=== PATIENT | female | born 1930 | race African-American/Black ===

== ENCOUNTER 2016-06-12 09:39 | Inpatient (IN) | payer MEDICARE ==
[~2016-06-12] VITALS: Ht 167.6 cm; Wt 63.5 kg
[~2016-06-12 09:39] MED LIST: ASPIRIN325 MG PO; BAYER CHEWABLE81 MG PO; C-500500 MG PO; CALCIUM 600 +1 EAC3; CALCIUM 600 +1 EAC3 PO; COREG12.5 MG PO; ELIQUIS2.5 MG PO; GLIMEPIRIDE4 MG PO; GLUCERNA 1 CAL237 ML PO; HYDROCODONE-APA1 TAB PO; LASIX40 MG PO; LEVAQUIN250 MG PO; LEVEMIR100 U/M1 SC; MIRALAX17 GM PO; NORCO 7.5/325 T1 TA1 PO; PATADAY2.5 ML EACH EYE; SILVADENE CREAM50 GM TOPICAL; STRESS 600 WI1 UDTAB PO; TUMS500 MG; TUMS500 MG PO; TYLENOL W/CODEI1 TAB; TYLENOL W/CODEI1 TAB PO; VANCOMYCIN 1 GM/1 G1 IV; ZOCOR40 MG PO; ZOSYN 2.25 GM2.25 G1 IV
[2016-06-12 10:15] VITALS: BP 111/56
--- NOTE | 2016-06-12 10:26 | NUR ---
FOUND PT IN ROOM IN WHEELCHAIR WITH NO ONE ELSE IN ROOM WITH HER. PT IS A BILAT AMPUTEE. SAYS SHE IS FROM THE [facility] AND THAT THEY DROPPED HER OFF. PT USUALLY NEEDS A VIKY LIFT TO LIFT HER TO AND FROM WHEELCHAIR TO BED. IT TOOK FOUR STAFF MEMBERS TO BUS DRIVER/MONITOR PT TO THE BED. PT IS OF NO ASSISTANCE TO STAFF. PT HAS MULTIPLE OPEN SORES ON HER BUTTOCK AND THIGH AREA. LOOK LIKE SCRAPES, PINK IN COLOR. PT HAS A R CHEST HEMOSPLIT. WITH NO DRESSING ON. STERILE TECHNIQUE INITIATED AND PLACED DRESSING ON. PT SITTING UP IN BED EATING WILL CONT TO MONITOR.
[2016-06-12] MEDS ORDERED: COREG12.5 MG PO (10:55)
[2016-06-12] MEDS ORDERED: CULTURELLE1 CAP PO (11:08)
[2016-06-12] MEDS ORDERED: LEVEMIR100 U/M1 SC (11:08)
[2016-06-12 12:40] LABS: BASOPHILS 0.3 % (0.0-2.0); EOSINOPHILS 1.3 % (0-7); HEMATOCRIT 38.8 % (36.0-48.0); HEMOGLOBIN 12.4 g/dL (12-16); IMMATURE GRANULOCYTES 0.1 % (0-5); LYMPHOCYTES 41.5 % (15-50); MCH 31.6 pg (26.0-34.0); MEAN PLATELET VOLUME 10.7 fL (7.4-10.4); MONOCYTES 7.8 % (2-11); PLATELET COUNT 209 10x3/uL (130-400); RBC 3.92 10x6/uL (4.00-5.40); RDW 15.3 % (11.5-14.5); WBC 6.7 10x3/uL (4.8-10.8)
[2016-06-12 12:46] LABS: ALBUMIN 3.7 g/dL (3.4-5.0); ANION GAP 17.7 mmol/L (8-16); BILIRUBIN - TOTAL 0.22 mg/dL (0.2-1.3); CALCIUM 9.7 mg/dL (8.5-10.1); CARBON DIOXIDE 24.7 mmol/L (21.0-32.0); CREATININE - SERUM 3.8 mg/dL (0.6-1.3); POTASSIUM - SERUM 4.4 mmol/L (3.5-5.1); PROTEIN - SERUM 8.2 g/dL (6.4-8.2)
--- NOTE | 2016-06-12 12:48 | NUR ---
DR VAZQUEZ CAME UP TO SEE PT. MAKENZIE VASCULAR NURSE WAS UNABLE TO GET IV ON PT SHE STUCK PT X5 TIMES. DR VAZQUEZ SAID THAT WE DO NOT NEED A PIV, AND THAT WE COULD RUN HER IV ABX ON DIALYSIS. SHE WILL BE ON DAILY DIALYSIS. HE PLANS ON REMOVING HER R CHEST HEMOSPLIT IN 2 DAYS AND PLACING ANOTHER ON IN HER LEFT CHEST AFTER THAT. PT WAS ADMITTED WITH NO DRESSING ON HEMOSPLIT SITE! I IMMEDIATELY CLEANSED AND PLACED DRESSING ON ARRIVAL. WAITING ON LAB TO BRING CULTURE TUBES TO DRAW BC.
--- NOTE | 2016-06-12 14:39 | NUR ---
HAVE CALLED DIALYSIS TWICE NOW TO FIND OUT WHEN THEY ARE DIALYZING PT TODAY. VANC ORDERED TO BE GIVEN ON DIALYSIS.
[2016-06-12 16:27] VITALS: BP 124/52
--- NOTE | 2016-06-12 16:28 | NUR ---
PT SITTING UP IN BED WAITING ON DINNER. HER FSBS WAS 153, SHE REFUSED INSULIN. SHE DOES NOT TAKE SLIDING SCALE INSULIN AT HOME. SHE IS AFRAID OF BOTTOMING OUT. NOT GIVEN PER HER REQUEST.
--- NOTE | 2016-06-12 16:38 | NUR ---
ELSY FROM DIALYSIS HERE TO DIALYZE PT. GIVEN HER VANC TO GIVE PT ON DIALYSIS.
--- NOTE | 2016-06-12 17:30 | NUR ---
CALLED PT LONGTERM WHERE SHE RESIDES. THEY ARE FAXING POA IN THE AM WHEN THE OFFICES ARE OPEN.
--- NOTE | 2016-06-12 20:16 | NUR ---
PT CURRENTLY RECIEVING HEMODIALYSIS. ALERT/ORIENTED. NO NEEDS VOICED. CPOC. DIALYSIS NURSE AT BEDSIDE.
[2016-06-13] VITALS: BP 103/54
[2016-06-13 04:00] VITALS: BP 108/51
--- NOTE | 2016-06-13 07:28 | NUR ---
PT SITTING UP IN BED SLEEPING NO S/S DISTRESS WILL CONT TO MONITOR.
[2016-06-13 09:40] VITALS: Ht 167.6 cm; Wt 63.5 kg
[2016-06-13 10:00] VITALS: BP 114/42
[2016-06-13 11:41] VITALS: BP 123/68
[2016-06-13 12:34] LABS: BASOPHILS 0.5 % (0.0-2.0); EOSINOPHILS 1.5 % (0-7); HEMATOCRIT 39.5 % (36.0-48.0); HEMOGLOBIN 12.7 g/dL (12-16); LYMPHOCYTES 41.2 % (15-50); MCH 31.8 pg (26.0-34.0); MCHC 32.2 g/dL (31.0-37.0); MEAN PLATELET VOLUME 10.6 fL (7.4-10.4); MONOCYTES 9.4 % (2-11); NEUTROPHILS 47.4 % (40-80); PLATELET COUNT 187 10x3/uL (130-400); RBC 3.99 10x6/uL (4.00-5.40); RDW 15.1 % (11.5-14.5); WBC 5.9 10x3/uL (4.8-10.8)
[2016-06-13 13:54] LABS: ALBUMIN 3.7 g/dL (3.4-5.0); BILIRUBIN - TOTAL 0.7 mg/dL (0.2-1.3); CALCIUM 9.5 mg/dL (8.5-10.1); CARBON DIOXIDE 29.2 mmol/L (21.0-32.0); MAGNESIUM - SERUM 1.8 mg/dL (1.8-2.4); PROTEIN - SERUM 8.6 g/dL (6.4-8.2)
[2016-06-13 14:05] LABS: CREATININE - SERUM 1.5 mg/dL (0.6-1.3)
[2016-06-13 14:06] LABS: ANION GAP 13.7 mmol/L (8-16); POTASSIUM - SERUM 2.9 mmol/L (3.5-5.1)
--- NOTE | 2016-06-13 14:10 | NUR ---
PT K CRITICAL LOW 2.9. PAGED PHAN
--- NOTE | 2016-06-13 14:16 | NUR ---
CALLED PHAN FOR PT CRITICAL LOW POTASSIUM. SHE SAID TO REDRAW POTASSIUM AT [place] 4 PM SINCE THE INSULATION WORKER APPRENTICE SUSANNA WHILE PT WAS RECEIVING DIALYSIS. AND THEN SEE IF IT COMES UP. ALSO TO PUT PT ON TELE. PLACING ON TELE NOW. ORDERED REDRAW.
--- NOTE | 2016-06-13 14:34 | NUR ---
Patient Name: THERESE ADORNO Admission Status: Elective Accout number: [id number] Admission Date: 06-12-2016 : 1930 Admission Diagnosis: Attending: PANCHO Current LOS: 1 Anticipated DC Date: Planned Disposition: Nursing Facility [facility] Cert Primary Insurance: MEDICARE A & B PLANNED EXTERNAL PROVIDER: [facility], [facility] CARE MEDICAID BED Discharge Planning Comments: * Is the patient Alert and Oriented? Yes 0 * How many steps to enter\exit or inside your home? NONE 0 * PCP DR. TRAVIS 0 * Pharmacy [facility] 0 * Preadmission Environment [facility] 0 * Facility Name [facility] 0 * ADLs Partial Dependent 0 * Partial ADLs (Assistance needed) Bathing Medication Management Toileting Transfers 0 * Equipment Other 0 * Other Equipment ALL MEDICAL EQUIPMENT PROVIDED BY SNF 0 * List name and contact numbers for known caregivers / representatives who currently or will assist patient after discharge: NICKO CABRERA, NEPHPATRICK, 0 * Community resources currently utilized Other 0 * Please name any agencies selected above. OUTPATIENT DIALYSIS: [facility] ; M/W/F, 1145AM\ SNF VAN OR [facility] MEDICAID TRANSPORT 0 * Additional services required to return to the preadmission environment? No 0 * Can the patient safely return to the preadmission environment? Yes 0 * Has this patient been hospitalized within the prior 30 days at any hospital? No 0 CM MET WITH PT IN ROOM TO DISCUSS DISCHARGE PLANNING AND NEEDS. PT REPORTS LIVING AT HOME DEPENDENT UPON STAFF AT [facility]. PT WILL BE RETURNING THERE AT DISCHARGE, SNF WILL SEND VAN TO PICK HER UP. PT GOES TO [facility] IN [place] [address] FROM THE SNF AND IS TRANSPORTED BY THE SNF VAN AND SOMETIMES BY [employer] WHEN THE VAN IS NOT AVAILABLE. PT REPORTS ALL OF HER NEEDS ARE MET BY THE SNF. PT REPORTS THAT HER NEPHEW KNOWS SHE IS HERE AND CALLED HER LAST NIGHT TO CHECK ON HER. PT DENIES NEEDS AT THIS TIME. FOR DISCHARGE, [facility], , FAX DISCHARGE INFORMATION TO [phone]. SNF TO ARRANGE VAN TRANSPORTATION. CM TO FOLLOW AND ASSIST NEEDED. Marine Pipefitter: Kane Goodson
[2016-06-13 15:43] VITALS: BP 109/53
--- NOTE | 2016-06-13 15:53 | NUR ---
PT STILL RUNNING SR 80 BPM
--- NOTE | 2016-06-13 20:00 | NUR ---
PT RESTING IN BED. ROUSES UP EASILY. RESERVE LEFT ARM. RIGHT CHEST WALL HEMOSPLIT. ON ISOLATION FOR MRSE OF THE BLOOD. FSBS AC & HS. SEE ASSESSMENT. CPOC.
[2016-06-13 21:01] VITALS: BP 136/59
--- NOTE | 2016-06-13 21:36 | NUR ---
HS MEDS GIVEN. PT RESTING , WATCHING TV. NORCO FOR OPTIMAL LEVEL OF COMFORT. CPOC.
[2016-06-14 01:09] VITALS: BP 108/51
--- NOTE | 2016-06-14 04:08 | NUR ---
RESTING IN BED WITH NO DISTRESS. CPOC. CALL LIGHT IN REACH.
[2016-06-14 05:23] VITALS: BP 118/56
[2016-06-14 06:25] LABS: PHOSPHOROUS 3.7 mg/dL (2.5-4.9)
--- NOTE | 2016-06-14 07:30 | NUR ---
ASSESSMENT DONE. PT SLEEPING. EASILY AWAKEN. DENIES NEEDS AT THIS TIME. NO DISTRESS NOTED. CALL LIGHT WITH IN REACH. WILL CONT. TO MONITOR.
[2016-06-14 08:09] VITALS: BP 118/57
--- NOTE | 2016-06-14 08:53 | NUR ---
NURSE ENTERED ROOM TO GIVE MEDS. DIALYSIS NURSE IN ROOM HOOKING PT UP TO DIALYSIS. WILL WAIT TO GIVE MEDS UNTIL DIALYSIS IS FINISHED. PT DENIES PAIN OR DISCOMFORT. NO DISTRESS NOTED. CALL LIGHT WITH IN REACH. WILL CONT. TO MONITOR.
[2016-06-14 11:36] VITALS: BP 132/69
--- NOTE | 2016-06-14 13:09 | NUR ---
RESTS IN ISOLATION ROOM. TANI NEEDS AT THIS TIME. CALL LIGHT IN REACH. WILL CONT. PLAN OF CARE.
--- NOTE | 2016-06-14 13:33 | NUR ---
EKG DONE AND CONSENTS SIGNED FOR HEMOSPLIT REMOVAL. TO BE DONE TODAY BY DR. MALIK. PT A/O X4 AND ABLE TO UNDERSTAND AND VERBALIZED PROCEDURE AND RISKS. PT'S NEPHEW SCOTT RAI ALSO NOTIFIED OF PROCEDURE TO BE DONE TODAY AT AROUND 2PM. HE STATES HE WILL TRY TO BE HERE FOR PROCEDURE. ANETHESIA HERE TALKING WITH PT NOW.
--- NOTE | 2016-06-14 14:11 | NUR ---
PT TO OR VIA BED
--- NOTE | 2016-06-14 14:50 | NUR ---
PT BACK FROM O2. A/O X3. HEMOSPLIT REMOVED FROM RIGHT CHEST. DRESSING IN PLACE WITH SMALL AMOUNT OF BLOOD NOTED. SMALL HEMATOMA NOTED. PT DENIES PAIN AT SITE. HOB ELEVATED WILL CONT. TO MONITOR. LOCAL ANETHESIA USED ONLY. B/P 138/77 P-75. TRAY ORDERED. WILL CALL PT'S NEPHEW AND NOTIFY HIM THAT PROCEDURE IS OVER. CALL LIGHT WITH IN REACH. PT PASSING GAS, BUT DENIES BM. ALSO, PT REFUSES TO ALLOW NURSE TO RE-APPLY TELEMETRY. STATES IT IS UNCOMFORTABLE AND SHE DOES NOT WANT TO WEAR IT. PT HAS BEEN SR THE WHOLE TIME SHE HAS WORN IT. EXPLAINED TO PT THAT THE DR'S WOULD LIKE TO CONT. TO MONIOR HER HEART. PT STILL REFUSES TO WEAR TELEMETRY. WILL CONT. TO MONITOR.
[2016-06-14 15:37] VITALS: BP 121/64
--- NOTE | 2016-06-14 16:07 | NUR ---
PT SITTING UP IN BED EATING AND VISITING WITH FAMILY. DRESSING TO SITE STILL WITH SMALL AMOUT OF BLOOD NOTED. HEMATOMA AROUND SITE STABLE. HOB ELEVATE. PT DENIES PAIN AT SITE. WILL CONT. TO MONITOR. NO DISTRESS NOTED. RESP EVEN AND UNLABORED. CALL LIGHT WITH IN REACH. WILL CONT. TO MONITOR.
--- NOTE | 2016-06-14 16:16 | NUR ---
ZOË HERNANDEZQA SOFTWARE TESTER NOTIFIED TO SCHEDULE PT'S SURGERY FOR THURSDAY FOR INSERTION OF HEMOSPLIT CATH. PT REPORTS THAT IT IS ALREADY DONE. WILL PASS ON IN REPORT THAT CONSENTS NEED TO BE SIGNED TOMORROW.
[2016-06-14 20:04] VITALS: BP 120/53
--- NOTE | 2016-06-14 21:25 | NUR ---
PT ASSESSMENT COMPLETED CALL LIGHT IN REACH NO DISTRESS OBSERVED GLUCOSE CHECKED AND READING 315 PT REFUSED HUMALIN BUT ALLOWED LEVAMIER INJ FOR COVERAGE RESPERATIONS EVEN AND UNLABORED ON ROOM AIR PT HAS NO IV WILL MONITOR
[2016-06-15 00:30] VITALS: BP 110/60
--- NOTE | 2016-06-15 01:57 | NUR ---
PT LAYING IN BED NO DISTRESS OBSERVED BED LOW AND LOCKED WILL MONITOR
--- NOTE | 2016-06-15 01:58 | NUR ---
PT LAYING IN BED NO DISTRESS OBSERVED WILL MONITOR
[2016-06-15 04:30] VITALS: BP 133/57
--- NOTE | 2016-06-15 07:05 | NUR ---
RECEIVED REPORT. ASSUMED CARE OF PATIENT. ALERT/ORIENTED. RESP EVEN AND UNLABORED. PATIENT DENIES NEEDS AT THIS TIME. REMAINS IN CONTACT ISOLATION. CALL LIGHT WITHIN REACH. NO DISTRESS.
[2016-06-15 07:34] VITALS: BP 122/59
[2016-06-15 07:55] LABS: BASOPHILS 0.4 % (0.0-2.0); EOSINOPHILS 1.8 % (0-7); HEMATOCRIT 36.6 % (36.0-48.0); HEMOGLOBIN 11.6 g/dL (12-16); IMMATURE GRANULOCYTES 0.2 % (0-5); LYMPHOCYTES 39.8 % (15-50); MCH 31.9 pg (26.0-34.0); MCHC 31.7 g/dL (31.0-37.0); MCV 100.5 fL (80.0-100.0); MEAN PLATELET VOLUME 10.4 fL (7.4-10.4); NEUTROPHILS 46.8 % (40-80); PLATELET COUNT 161 10x3/uL (130-400); RBC 3.64 10x6/uL (4.00-5.40); RDW 15.2 % (11.5-14.5); WBC 5.6 10x3/uL (4.8-10.8)
[2016-06-15 08:10] LABS: ANION GAP 14.9 mmol/L (8-16); CALCIUM 9.7 mg/dL (8.5-10.1); CARBON DIOXIDE 27.1 mmol/L (21.0-32.0)
[2016-06-15 08:11] LABS: CREATININE - SERUM 3.5 mg/dL (0.6-1.3)
--- NOTE | 2016-06-15 11:19 | NUR ---
FSBS 326. 8 UNITS HUMULIN ADMINISTERED PER SLIDING SCALE. NO DISTRESS.
[2016-06-15 11:36] VITALS: BP 121/57
--- NOTE | 2016-06-15 12:11 | NUR ---
LAB CALLED DUE TO FSBS IS NOT TRANSFERRING FSBS TO PATIENT RECORD. LAB STATES THAT PERSON WHOM CAN FIX THIS PROBLEM ALREADY GONE FOR THE DAY. FSBS MACHINE DOCKED TO DIFFERENT STATION AT THIS TIME IN HOPES THAT RESULTS WILL TRANSFER TO PATIENT RECORD.
[2016-06-15 15:32] VITALS: BP 118/62
--- NOTE | 2016-06-15 16:40 | NUR ---
FSBS 187. 2 UNITS HUMULIN ADMINISTERED PER SLIDING SCALE. NO DISTRESS.
--- NOTE | 2016-06-15 17:58 | NUR ---
TURNED AND REPOSITIONED. INCONTINENT CARE PROVIDED. CALL LIGHT WITHIN REACH. NO DISTRESS.
--- NOTE | 2016-06-15 18:42 | NUR ---
SITTING UP IN BED. NO DISTRESS. DENIES NEEDS. CALL LIGHT WITHIN REACH.
--- NOTE | 2016-06-15 19:32 | NUR ---
ASSESSMENT COMPLETE. SITTING UP IN BED, A&O. RESPERATIONS EVEN AND UNLABORED. PT DENIES PAIN OR NEEDS, BED LOW, CL IN REACH, WILL CONT TO MONITOR.
[2016-06-15 20:36] VITALS: BP 123/60
--- NOTE | 2016-06-15 21:08 | NUR ---
HS MEDS GIVEN WITH FRESH ICE WATER. NORCO 1 TAB GIVEN FOR C/O PAIN. BS 191, COVERED PER S/S. WILL CONT TO MONITOR.
--- NOTE | 2016-06-16 00:30 | NUR ---
SUPERVISOR ELECTRIC AT BEDSIDE FOR VS. NEEDS ADDRESSED AT THIS TIME. CALL LIGHT IN REACH. WILL CONT TO MONITOR.
[2016-06-16 01:24] VITALS: BP 116/52
--- NOTE | 2016-06-16 02:39 | NUR ---
RESTING WITH EYES CLOSED, RESPERATIONS EVEN, NO S/S DISTRESS NOTED.
[2016-06-16 04:40] LABS: BASOPHILS 0.3 % (0.0-2.0); HEMATOCRIT 34.5 % (36.0-48.0); HEMOGLOBIN 11.3 g/dL (12-16); IMMATURE GRANULOCYTES 0.2 % (0-5); LYMPHOCYTES 49.8 % (15-50); MCH 32.8 pg (26.0-34.0); MCHC 32.8 g/dL (31.0-37.0); MEAN PLATELET VOLUME 10.5 fL (7.4-10.4); MONOCYTES 8.4 % (2-11); NEUTROPHILS 38.3 % (40-80); PLATELET COUNT 174 10x3/uL (130-400); RBC 3.45 10x6/uL (4.00-5.40); RDW 14.9 % (11.5-14.5); WBC 6.7 10x3/uL (4.8-10.8)
[2016-06-16 04:59] LABS: ANION GAP 13.8 mmol/L (8-16); CALCIUM 9.9 mg/dL (8.5-10.1); CARBON DIOXIDE 28.2 mmol/L (21.0-32.0); PHOSPHOROUS 3.8 mg/dL (2.5-4.9)
[2016-06-16 05:02] LABS: CREATININE - SERUM 4.6 mg/dL (0.6-1.3)
[2016-06-16 06:26] VITALS: BP 145/70
--- NOTE | 2016-06-16 07:33 | NUR ---
ASSESSMENT COMPLETED. NO TELEMENTRY. 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 BILATERAL BKA. IN CONTACT ISOLATION. SR UP WITH CALL IN REACH. WILL MONITOR
[2016-06-16 07:43] VITALS: BP 123/60
--- NOTE | 2016-06-16 08:29 | NUR ---
RESTING QUIETLY NAD NOTED
[2016-06-16 12:07] VITALS: BP 143/73
--- NOTE | 2016-06-16 13:57 | NUR ---
WOUND CARE CONSULT: PT HAS A HISTORY OF PRESSURE INJURIES. HER BUTTOCKS/SACRUM/COCCYX/GLUTEAL FOLDS ARE PINK FROM OLD INJURIES. SHE IS A BILATERAL AMPUTEE. JUST BELOW BILATERAL GLUTEAL FOLDS ARE 2 AREAS OF RAW SKIN. BOTH MEASURING 1CM X 3CM. LOOK LIKE SKIN TEARS. HER PERINEAL AREA IS RED AND EXCORIATED. RECOMMEND COVERING SACRUM WITH MEPILEX TO PROTECT AND RAW SKIN WITH MEPILEX TO PROTECT. WILL ALSO RECOMMEND AIR OVERLAY MATTRESS.
--- NOTE | 2016-06-16 14:31 | NUR ---
HOB UP.WATCHING TV. DENIES ANY NEEDS. WILL MONITOR.
[2016-06-16 16:15] VITALS: BP 122/57
--- NOTE | 2016-06-16 17:14 | NUR ---
IST STEP BED ON. DENIES ANY NEEDS. CALL LIGHT IN REACH WITH SR UP. WILL MONITOR
--- NOTE | 2016-06-16 19:25 | NUR ---
RECEIVED REPORT, HAS LAVF-NON WORKING, BILATERAL BKA, R. HAND-MISSING LITTLE FINGER, PT ON 1ST MATTRESS, BED IS LOW,SRX2, BED ALARM IS ON, NPO AFTER MIDNIGHT- HEMOSPLIT IN AM, CONSENT SIGNED PER DAYSHIFT, [id number], DENIES ANY NEEDS, CALL LIGHT IN REACH, WILL CONTINUE TO MONITOR
[2016-06-16 20:00] VITALS: BP 126/61
--- NOTE | 2016-06-16 21:15 | NUR ---
BLOOD SUGAR-179, HELD INSULIN, BECAUSE WILL BE NPO AFTER MIDNIGHT
[2016-06-17] VITALS: BP 146/97
--- NOTE | 2016-06-17 00:30 | NUR ---
BINDING CEMENTER FRENCH CORD AT BEDSIDE FOR VS. NEEDS ADDRESSED. CALL LIGHT IN REACH. WILL CONT TO MONITOR.
[2016-06-17 04:00] VITALS: BP 136/63
[2016-06-17 05:31] LABS: BASOPHILS 0.2 % (0.0-2.0); EOSINOPHILS 3.3 % (0-7); HEMATOCRIT 33.2 % (36.0-48.0); HEMOGLOBIN 10.5 g/dL (12-16); IMMATURE GRANULOCYTES 0.2 % (0-5); LYMPHOCYTES 38.1 % (15-50); MCH 31.3 pg (26.0-34.0); MCHC 31.6 g/dL (31.0-37.0); MCV 98.8 fL (80.0-100.0); MEAN PLATELET VOLUME 10.5 fL (7.4-10.4); MONOCYTES 8.2 % (2-11); PLATELET COUNT 171 10x3/uL (130-400); RBC 3.36 10x6/uL (4.00-5.40); RDW 14.7 % (11.5-14.5)
[2016-06-17 06:15] LABS: ANION GAP 17.9 mmol/L (8-16); CALCIUM 9.6 mg/dL (8.5-10.1); CARBON DIOXIDE 25.3 mmol/L (21.0-32.0); POTASSIUM - SERUM 4.2 mmol/L (3.5-5.1); VANCOMYCIN - RANDOM 19.8 ug/mL (10.0-20.0)
[2016-06-17 06:16] LABS: CREATININE - SERUM 5.8 mg/dL (0.6-1.3)
--- NOTE | 2016-06-17 07:00 | NUR ---
RECEIVED REPORT. ASSUMED CARE OF PATIENT. CALL LIGHT WITHIN REACH. RESTING WITH EYES CLOSED. RESP EVEN AND UNLABORED. FIRST STEP BED PATENT. PATIENT NPO FOR HEMOSPLIT PLACEMENT TODAY. NO DISTRESS.
[2016-06-17 08:01] VITALS: BP 141/74
--- NOTE | 2016-06-17 09:08 | NUR ---
MEPILEX REPLACED TO SACRUM/COCCYX AT THIS TIME. NO DISTRESS. CALL LIGHT WITHIN REACH. MEPILEX PATENT TO BILATERAL POSTERIOR UPPER THIGH CREASES NEAR BUTTOCK. NO DIAPER, PAPER CHUCKS UTILIZED.
--- NOTE | 2016-06-17 10:36 | NUR ---
VASCULAR ACCESS NURSE AT BEDSIDE FOR ATTEMPT TO PLACE IV PRIOR TO SURGERY SCHEDULED FOR TODAY.
--- NOTE | 2016-06-17 10:50 | NUR ---
22 GAUGE IV PLACED TO RIGHT WRIST X 2 STICKS BY VASCULAR ACCESS NURSE MAKENZIE. EASY FLUSH, GOOD BLOOD RETURN. TAPED, DATED AND SECURED. TOLERATED IV PLACEMENT WELL.
--- NOTE | 2016-06-17 11:41 | NUR ---
FSBS 148. NO INSULIN COVERAGE PER SLIDING SCALE AND PATIENT IS NPO FOR SURGICAL PROCEDURE TODAY.
[2016-06-17 12:15] VITALS: BP 126/53
--- NOTE | 2016-06-17 12:25 | NUR ---
BRYAN MILNER FROM DIALYSIS CALLED TO CHECK ON PATIENT TO SEE IF SHE WOULD BE THERE FOR DIALYSIS TOMORROW. INFORMED BRYAN MILNER THAT THIS BIOFUELS PLANT OPERATIONS ENGINEER IS UNSURE OF DISCHARGE ARRANGMENTS AT THIS TIME. [phone] IS THE NUMBER THAT BRYAN MILNER CAN BE REACHED AT. BRYAN MILNER STATED SHE WOULD CALL TOMORROW AM AND CHECK ON PATEINT.
--- NOTE | 2016-06-17 13:45 | NUR ---
Patient Name: LARA DICKSON Admission Status: Urgent Accout number: [id number] Admission Date: 06-16-2016 : 10-04-1947 Admission Diagnosis: Attending: TAZ Current LOS: 1 Anticipated DC Date: Planned Disposition: Home Primary Insurance: MEDICARE A & B Discharge Planning Comments: * Is the patient Alert and Oriented? Yes 0 * How many steps to enter\exit or inside your home? RAMP 0 * PCP DR. LÓPEZ 0 * Pharmacy [facility] [address] 0 * Preadmission Environment Home with Family 0 * ADLs Independent 0 * Equipment Cane Other- ELECTRIC SCOOTER Walker 0 * Other Equipment NO MEDICAL EQUIPMENT PROVIDER PREFERENCE 0 * List name and contact numbers for known caregivers / representatives who currently or will assist patient after discharge: ROMAIN DICKSON, SPOUSE, 0 * Community resources currently utilized None 0 * Please name any agencies selected above. NONE 0 * Additional services required to return to the preadmission environment? No 0 * Can the patient safely return to the preadmission environment? Yes 0 * Has this patient been hospitalized within the prior 30 days at any hospital? No 0 CM MET WITH PT IN ROOM TO DISCUSS DISCHARGE PLANNING AND NEEDS. PT REPORTS LIVING AT HOME INDEPENDENTLY WITH SPOUSE. PT HAS A CANE, WALKER SHE BOUGHT AT A YARD SALE ABOUT 8 YEARS AGO AND AN OLD ELECTRIC SCOOTER. PT HAS NO MEDICAL EQUIPMENT PROVIDER PREFERENCE. PT HAS NO OUTSIDE SERVICES ASSISTING IN THE HOME. CM DISCUSSED AVAILABILITY OF HOME HEALTH, REHAB SERVICES AND MEDICAL EQUIPMENT. PT DENIES DISCHARGE NEEDS, REPORTS HER SPOUSE WILL PICK HER UP FOR DISCHARGE HOME. PT PLANS TO DISCHARGE HOME WITH SPOUSE, NO ANTICIPATED NEEDS. CM TO FOLLOW AND ASSIST NEEDED. Technology Advisor: Kane Goodson
--- NOTE | 2016-06-17 15:17 | NUR ---
PATIENT PREOPED AT THIS TIME PER SURGERY. NO DISTRESS.
--- NOTE | 2016-06-17 16:05 | NUR ---
PATIENT PATHWAYS - [facility] on MWF @ 11:45. Med recs forwarded. BMM PRL
--- NOTE | 2016-06-17 16:30 | NUR ---
FSBS 131. NO INSULIN COVERAGE ADMINISTERED. PATIENT STILL WAITING TO GO TO SURGERY FOR HEMOSPLIT PLACEMENT AT THIS TIME.
--- NOTE | 2016-06-17 17:55 | NUR ---
PATIENT LEFT UNIT VIA BED AND TAKEN TO SURGERY FOR HEMOSPLIT PLACMENT AT THIS TIME. NO DISTRESS UPON LEAVING UNIT.
--- NOTE | 2016-06-17 19:21 | NUR ---
BACK TO ROOM FROM SURGERY. VITALS STABLE, LEFT CHEST HEMOSPLIT WITH DRSG INTACT. DINNER TRAY GIVEN, PT DENIES PAIN OR NEEDS, BED LOW, CL IN REACH.
[2016-06-17 21:04] VITALS: BP 159/88
--- NOTE | 2016-06-17 23:22 | NUR ---
INCISION TO RIGHT NECK/CHEST BLEEDING, REINFORCED DRSG WITH 4X4S TAPE. WILL CONT TO MONITOR.
[2016-06-18 01:48] VITALS: BP 161/78
--- NOTE | 2016-06-18 01:50 | NUR ---
RESTING WITH EYES CLOSED, RESPERATIONS EVEN, NO S/S DISTRESS NOTED.
--- NOTE | 2016-06-18 04:00 | NUR ---
ORANGE PICKER AT BEDSIDE FOR VS. CONT TO MONITOR.
[2016-06-18 05:05] VITALS: BP 118/65
[2016-06-18 05:21] LABS: BASOPHILS 0.4 % (0.0-2.0); EOSINOPHILS 2.1 % (0-7); HEMATOCRIT 33.6 % (36.0-48.0); HEMOGLOBIN 10.5 g/dL (12-16); MCHC 31.3 g/dL (31.0-37.0); MCV 99.1 fL (80.0-100.0); MEAN PLATELET VOLUME 10.6 fL (7.4-10.4); MONOCYTES 8.2 % (2-11); NEUTROPHILS 54.3 % (40-80); PLATELET COUNT 172 10x3/uL (130-400); RBC 3.39 10x6/uL (4.00-5.40); RDW 14.5 % (11.5-14.5); WBC 5.6 10x3/uL (4.8-10.8)
[2016-06-18 05:37] LABS: ANION GAP 16.7 mmol/L (8-16); CALCIUM 8.9 mg/dL (8.5-10.1); CARBON DIOXIDE 24.7 mmol/L (21.0-32.0); PHOSPHOROUS 6.1 mg/dL (2.5-4.9); POTASSIUM - SERUM 4.4 mmol/L (3.5-5.1); VANCOMYCIN - RANDOM 18.1 ug/mL (10.0-20.0)
[2016-06-18 08:31] VITALS: BP 129/64
--- NOTE | 2016-06-18 10:11 | NUR ---
PATIENT PATHWAYS - [facility] Thu/Thu/Thu @ 10:00. BMM
--- NOTE | 2016-06-18 11:02 | NUR ---
FSBS 252. 6 UNITS SS INSULIN GIVEN VIA R.ARM. PROVIDED PT WITH HER PROBIOTIC AND A DIET LEMON ASSINIBOINE AND [place] SODA. PT RESTING IN BED, DENIES ANY PAIN OR CURRENT NEEDS. CL IN REACH, BED IN LOWEST, SIDE RAILS X2. WILL CPOC.
[2016-06-18 12:00] VITALS: BP 160/85
--- NOTE | 2016-06-18 14:28 | NUR ---
Nutrition follow-up: Diet: Renal ADA consistent CHO PO Intake ~75% of meals Labs reviewed +BM FSBS under fair control Wt: 140# Pt is NPO for surgery RDN following.
--- NOTE | 2016-06-18 14:30 | NUR ---
Patient Name: THERESE ADORNO Encounter No: [id number] : 1930 Primary Insurance: MEDICARE A & B Anticipated DC Date: Planned Disposition: Nursing Facility EARNE[facility] Cert External Planned Provider: [facility], ENTRY LEVEL BUSINESS ANALYST CARE BED DCP follow-up note: CM PROVIDED CANELO, CLINICAL LIAISON FOR [facility], UPDATE FOR FACILITY VIA FAX AT [phone]. FOR DISCHARGE, NURSE REPORT TO BE CALLED TO [facility], , FAX DISCHARGE INFORMATION TO [phone]. SNF TO ARRANGE VAN TRANSPORTATION IF PT IS ABLE TO SIT ERECT AND SAFELY FOR DURATION OF TRIP TO [place]. CM TO FOLLOW AND ASSIST NEEDED. Nuclear Medicine Officer: Kane Goodson
[2016-06-18 16:22] VITALS: BP 126/54
--- NOTE | 2016-06-18 18:07 | NUR ---
PT RECIEVING DIALYSIS IN ROOM AT THIS TIME. VSS. DENIES ANY CURRENT NEEDS. WILL CPOC.
--- NOTE | 2016-06-18 19:30 | NUR ---
RECEIVED REPORT, PT RECEIVING DIALYSIS IN ROOM, [place] CHEST HEMOSPLIT, ON 1ST MATTRESS, BED IS LOW, SRX2, WILL CONTINUE TO MONITOR, CALL LIGHT IN REACH
[2016-06-18 22:23] VITALS: BP 102/60
--- NOTE | 2016-06-19 03:26 | NUR ---
ASSESSMENT COMPLETE, CHANGED DRESSING ON BOTTOM AND R.CHEST, DENIES ANY NEEDS, CALL LIGHT IN REACH, WILL CONTINUE TO MONITOR
[2016-06-19 03:36] VITALS: BP 126/72
[2016-06-19 06:22] VITALS: BP 128/73
[2016-06-19 06:53] LABS: BASOPHILS 0.3 % (0.0-2.0); EOSINOPHILS 3.4 % (0-7); HEMATOCRIT 33.1 % (36.0-48.0); HEMOGLOBIN 10.6 g/dL (12-16); IMMATURE GRANULOCYTES 0.2 % (0-5); LYMPHOCYTES 35.2 % (15-50); MCH 31.5 pg (26.0-34.0); MCV 98.5 fL (80.0-100.0); MEAN PLATELET VOLUME 10.9 fL (7.4-10.4); MONOCYTES 9.9 % (2-11); PLATELET COUNT 140 10x3/uL (130-400); RBC 3.36 10x6/uL (4.00-5.40); RDW 14.4 % (11.5-14.5); WBC 5.8 10x3/uL (4.8-10.8)
[2016-06-19 07:08] LABS: ANION GAP 12.5 mmol/L (8-16); CALCIUM 9.4 mg/dL (8.5-10.1); CARBON DIOXIDE 29.4 mmol/L (21.0-32.0); POTASSIUM - SERUM 3.9 mmol/L (3.5-5.1); VANCOMYCIN - RANDOM 15.1 ug/mL (10.0-20.0)
[2016-06-19 07:18] LABS: CREATININE - SERUM 4.1 mg/dL (0.6-1.3)
[2016-06-19 09:05] VITALS: BP 102/62
--- NOTE | 2016-06-19 11:47 | NUR ---
FSBS 127 NO S/S INSULIN REQUIRED PER SS. PT IS SITTING UP IN BED EATING LUNCH. RECIEVING DIALYSIS. DENIES ANY CURRENT PAIN OR NEEDS. CL IN REACH. WILL CPOC.
[2016-06-19] MEDS ORDERED: RIFADIN150 MG PO (12:06)
[2016-06-19 12:28] VITALS: BP 140/71
--- NOTE | 2016-06-19 14:03 | NUR ---
Patient Name: THERESE ADORNO Encounter No: [id number] : 1930 Primary Insurance: MEDICARE A & B Anticipated DC Date: 06-19-2016 Planned Disposition: Nursing Facility EARNEST Cert External Planned Provider: [facility], MEDICAID VENEER GRADER CARE BED DCP follow-up note: CM RECEIVED DISCHARGE ORDER, SPOKE TO PT IN ROOM; PT WILLING FOR DISCHARGE TODAY BACK TO HER HOME AT [facility]. PT REPORTS NO NEED FOR CM ASSISTANCE IN CALLING FAMILY SHE WILL NOTIFY THEM HERSELF. PT HAS HER WHEELCHAIR IN THE ROOM AND REPORTS ABILITY TO SIT FOR DURATION OF TRIP BACK TO [place]. IMPORTANT MESSAGE FROM MEDICARE PROVIDED AND EXPLAINED. CM PROVIDED CANELO, CLINICAL LIAISON FOR [facility], DISCHARGE INFORMATION FOR FACILITY VIA FAX AT [phone]. FOR DISCHARGE, NURSE REPORT TO BE CALLED TO [facility], . DETENTION ARRANGING VAN TRANSPORTATION FOR THIS AFTERNOON. Protective Clothing Issuer: Kane Goodson
--- NOTE | 2016-06-19 15:08 | NUR ---
Patient Name: THERESE ADORNO Encounter No: [id number] : 1930 Primary Insurance: MEDICARE A & B Anticipated DC Date: 06-19-2016 Planned Disposition: Nursing Facility EARNEST Cert External Planned Provider: [facility], CASE MANAGEMENT ASSISTANT CARE MEDICAID BED DCP follow-up note: CM RECEIVED MESSAGE FROM CANELO CLINICAL LIAISON FOR [facility], VAN HAS BEEN SCHEDULED AND SHOULD BOILING HOUSE HAND PT BETWEEN 4:30PM AND 5:00PM TODAY. PT AND BEDSIDE NURSE NOTIFIED. NO FURHTER DISCHARGE NEEDS NOTED AT THIS TIME. Kane Goodson, CASE MANAGEMENT
--- NOTE | 2016-06-20 08:46 | EC ---
PATIENT:THERESE ADORNO DATE OF SERVICE: 06/12/16 SEX: F MEDICAL RECORD: [id number] DATE OF : [birth year] LOCATION:D. D.212 AGE OF PATIENT: 85 ADMISSION DATE: 06/12/16 REFERRING PHYSICIAN: INTERPRETING PHYSICIAN: DYLAN GONZALEZ MD ECHOCARDIOGRAM REPORT ECHO CHARGES 4 ECHO COMPLETE CLINICAL DIAGNOSIS: ASSESS FOR VEGATAIONS DUE RECURRENT BACTEREMIA ECHOCARDIOGRAPHIC MEASUREMENTS (adult normal given) AC root (d.<3.7cm) 3.1 LV Septum d (<1.2 cm> 1.3 Valve Excursion 1.4 LV Septum (systole) 1.5 Left Atria (s.<4.0cm> 3.6 LVPW d(<1.2cm) 1.3 RV (d.<2.3cm) 3.7 LVPW (sytole) 1.7 LV diastole(<5.6CM) 3.3 MV E-F(>70mm/sec) LV systole 1.9 LVOT Diameter 1.5 MV exc.(>10mm) 0.6 Est.ejection fraction (50-75%) Pericardial Effusion N DOPPLER: LVIT A 101 E 64.0 LA RVSP LVOT 79 AOP1/2T Asc. Ao 104 RVOT 80 RA PA 97 AV Gradient Peak 4.4 AV Mean 2.02 AV Area 1.5 MV Gradient Peak 7.74 MV Mean 2.5 MV Area COMMENTS: Animal Nurse: Rik SANDOVAL Director Of Enrollment:Rik Verduzco TAPE# PACS DATE OF SERVICE: 06/13/2016 FINDINGS: 1. Left ventricle chamber size is within normal limits. Left ventricular systolic function is normal. Overall ejection fraction estimated at 60%. 2. Left atrium, right atrium, and right ventricular chamber sizes are within normal limits. 3. Valvular structures have normal structure and motion, no evidence of vegetative endocarditis. 4. Doppler interrogation reveals no significant valvular insufficiency or ECHOCARDIOGRAM REPORT [id number] THERESE ADORNO stenosis. 5. No evidence of pericardial effusion or left ventricular thrombus. TRANSINT:[id number] Voice Confirmation ID: [id number] DOCUMENT ID: [id number] DYLAN GONZALEZ MD at 0846 CC: [id number] DICTATION DATE: 06/13/16 1238 AUTO DRIVER: 06/13/16 1339 DIS IN 06/19/16 [facility] [address] [place] [address]
--- NOTE | 2016-06-20 10:18 | OP ---
PATIENT NAME: THERESE HOLLIS MEDICAL RECORD: [id number] :30 LOCATION:D. D.2128 ADMISSION DATE:06/12/16 SURGEON: ANNABELLE MALIK MD DATE OF OPERATION: 06/17/2016 PREOPERATIVE DIAGNOSIS: Central venous line infection with septicemia and bacteremia with methicillin-resistant Staphylococcus epidermidis or MRSE. POSTOPERATIVE DIAGNOSIS: Central venous line infection with septicemia and bacteremia with methicillin-resistant Staphylococcus epidermidis or MRSE. OPERATION PERFORMED: Insertion of a left internal jugular HemoSplit tunneled dialysis catheter under local anesthesia with IV sedation and monitoring per CUSTOM BOOKBINDER and done under fluoroscopic and ultrasound guidance. SURGEON: Annabelle Malik MD REFERRING PHYSICIAN: Guanaco Morales MD PREOPERATIVE NOTE: Ms. Hollis is an 85-year-old -[place] female with end-stage renal disease, who is catheter dependent for hemodialysis access. She has had a persistent recurring MRSE infections and bacteremia despite her catheter being changed several times. This past weekend, on Thursday, I brought her to the operating room and removed right internal jugular tunneled dialysis catheter. The tip was sent for culture and it has not grown any organisms and the site was closed with plans made to return her to the operating room today, Thursday for insertion of a new catheter. Under IV sedation and monitoring per CUSTOM BOOKBINDER, the patient was prepped and draped in sterile manner. I examined the right side of her neck first and found that actually there was still a lumen and in the right internal jugular vein which appeared to be accessible under local anesthesia. I made an incision and then under ultrasound guidance, inserted a needle directly into the right internal jugular vein, but was never able to get venous blood returned. I did at one point have an arterial puncture, at which time I immediately withdrew the needle and held direct pressure at the site for 5 minutes and there was no subsequent hematoma or other problems seen on repeat ultrasound exam. At that time, I decided to abandon the right and go on to the left internal jugular, which I had examined with ultrasound and found to be of normal caliber. Under local anesthesia, an incision was made there at the base of the neck on the left and with ultrasound guidance, a needle and then a guidewire were inserted through that incision. Under fluoroscopy, the guidewire was placed in the right atrium. Dilators were passed over the wire and lastly a dilator peel-away introducer. I used a 23 cm long HemoSplit catheter, it needed to be a little longer to reach from the left side. It was inserted through a new skin entry site and pulled through the subcutaneous tunnel and then inserted through the peelaway sheath. Its tip was positioned deep in the right atrium. It was accessed and aspirated, free return was demonstrated from both lumens. They were both then flushed with saline and hep-lock solution and clamped and capped. The wounds were closed with interrupted 3-0 Vicryl and Dermabond glue and dressings were applied of Maxorb Ag, Tegaderm and Cavilon skin prep. The patient tolerated procedure well, though she was a little uncomfortable for a few minutes. There was no significant blood loss. All sponges, instruments and needles, etc., were accounted for and no drain was used and no surgical OPERATIVE REPORT [id number] THERESE HOLLIS specimen submitted. TRANSINT:[id number] Voice Confirmation ID: [id number] DOCUMENT ID: [id number] ANNABELLE MALIK MD at 1018 CC: GUANACO MORALES MD [id number] DICTATION DATE: 06/17/161915 PROPERTY MANAGEMENT ASSISTANT: 06/18/16 0059 DIS IN 06/19/16 [facility] [address] [place] [address]
--- NOTE | 2016-06-20 10:18 | OP ---
PATIENT NAME: THERESE ADORNO MEDICAL RECORD: [id number] :30 LOCATION:D. D.2128 ADMISSION DATE:06/12/16 SURGEON: ANNABELLE MALIK MD DATE OF OPERATION: 06/14/2016 PREOPERATIVE DIAGNOSES: Bacterial sepsis with methicillin-resistant Staphylococcus epidermidis associated with a central tunneled dialysis catheter in an 85-year-old -[place] female with end-stage renal disease, catheter dependent for hemodialysis access and now possible bacterial endocarditis. POSTOPERATIVE DIAGNOSES: Bacterial sepsis with methicillin-resistant Staphylococcus epidermidis associated with a central tunneled dialysis catheter in an 85-year-old -[place] female with end-stage renal disease, catheter dependent for hemodialysis access and now possible bacterial endocarditis. OPERATION PERFORMED: Removal of right internal jugular tunneled dialysis catheter. SURGEON: Annabelle Malik MD ANESTHESIA: Local 1% lidocaine with epinephrine buffered with bicarbonate and monitoring per MOBILE GAME ENGINEER. REFERRING PHYSICIAN: Dr. Enrique. PREOPERATIVE NOTE: Ms. Gee is an 85-year-old catheter dependent patient with a right internal jugular HemoSplit type catheter. She has Staphylococcus epidermidis bacteremia and the catheters to be removed. DESCRIPTION OF PROCEDURE: Under MOBILE GAME ENGINEER monitoring in supine position, the patient was prepped and draped in a sterile manner in the skin and subcutaneous tissues surrounding the catheter exit site just beneath the right clavicle were infiltrated with local anesthetic. A hemostat was used to free the surrounding tissues and dilate the exit wound and the catheter was then simply removed by traction without requiring any incision. Hemostasis was obtained with direct pressure on the catheter tract and by placing the patient in reverse Trendelenburg. The exit site was then dressed with Bactroban ointment and Maxorb Ag, Tegaderm and Cavilon skin prep. The patient was then returned to her room on med 2 in stable condition. We will plan to return the patient to the operating room on Thursday this week coming to place another dialysis catheter. Hopefully, we will be able to get back in the right internal jugular vein. There was no blood loss during the procedure and all sponges, instruments, and needles were accounted for. No drain was used. No surgical specimen was submitted for histopathology; however, the distal tip of the HemoSplit catheter was sent for culture and sensitivity. TRANSINT:[id number] Voice Confirmation ID: [id number] DOCUMENT ID: [id number] OPERATIVE REPORT [id number] KYREE,ANNABELLE PIERCE MD at 1018 CC: FABIANA ENRIQUE MD [id number] DICTATION DATE: 06/14/16 1447 [employer] PLANS INTELLIGENCE OFFICER CHIEF: 06/14/16 1812 DIS IN 06/19/16 [facility] [address] [place] [address]
== END 2016-06-19 17:52 | DRG 252 ==
LOC: D.M2 09:39
PROVIDERS: ADMIT Internal Medicine
PROC: 5A1D60Z (ICD-10-PCS; principal; 2016-06-12)
PROC: 05PY03Z Removal of Infusion Device from Upper Vein, Open Approach (ICD-10-PCS; 2016-06-14)
PROC: 05HN33Z Insertion of Infusion Device into Left Internal Jugular Vein, Percutaneous Approach (ICD-10-PCS; 2016-06-17)
PROC: B5141ZA Fluoroscopy of Left Jugular Veins using Low Osmolar Contrast, Guidance (ICD-10-PCS; 2016-06-17)
PROC: B544ZZA Ultrasonography of Left Jugular Veins, Guidance (ICD-10-PCS; 2016-06-17)
DX: T82.7XXA Infection and inflammatory reaction due to other cardiac and vascular devices, implants and grafts, initial encounter (principal); N18.6 End stage renal disease; A41.02 Sepsis due to Methicillin resistant Staphylococcus aureus; R65.20 Severe sepsis without septic shock; I33.0 Acute and subacute infective endocarditis; I12.0 Hypertensive chronic kidney disease with stage 5 chronic kidney disease or end stage renal disease; G45.8 Other transient cerebral ischemic attacks and related syndromes; B95.7 Other staphylococcus as the cause of diseases classified elsewhere; E11.22 Type 2 diabetes mellitus with diabetic chronic kidney disease; Z99.2 Dependence on renal dialysis; D63.1 Anemia in chronic kidney disease; I25.10 Atherosclerotic heart disease of native coronary artery without angina pectoris; I73.9 Peripheral vascular disease, unspecified; Z89.612 Acquired absence of left leg above knee; Z89.611 Acquired absence of right leg above knee; Y83.8 Other surgical procedures as the cause of abnormal reaction of the patient, or of later complication, without mention of misadventure at the time of the procedure; Z79.4 Long term (current) use of insulin; E87.6 Hypokalemia